=== PATIENT | male | born 1990 | race Caucasian/White ===

== ENCOUNTER 2022-02-19 15:29 | Emergency (ER) | payer OTHER ==
[~2022-02-19] VITALS: Ht 170.2 cm; Wt 77.1 kg
[2022-02-19] MEDS ORDERED: VALACYCLOVIR1000 MG PO (17:49)
[2022-02-19] MEDS ORDERED: DICLOFENAC POTA50 MG PO (17:49)
[2022-02-19] MEDS ORDERED: HORIZANT300 MG PO (17:49)
== END 2022-02-19 18:31 ==
LOC: ER 15:29
DX: K62.6 Ulcer of anus and rectum (principal); Z28.311 Partially vaccinated for COVID-19

== ENCOUNTER 2022-07-03 19:38 | Emergency (ER) | payer OTHER ==
[~2022-07-03] VITALS: Ht 170.2 cm; Wt 72.6 kg
[~2022-07-03 19:38] MED LIST: DICLOFENAC POTA50 MG PO; HORIZANT300 MG PO; VALACYCLOVIR1000 MG PO
== END 2022-07-03 22:06 | disposition home or self-care (01) ==
LOC: ER 19:38
DX: J03.80 Acute tonsillitis due to other specified organisms (principal)

== ENCOUNTER 2022-10-16 09:16 | Emergency (ER) | payer OTHER ==
[~2022-10-16] VITALS: Ht 170.2 cm; Wt 81.6 kg
== END 2022-10-16 12:30 | disposition home or self-care (01) ==
LOC: ER 09:16
DX: M62.830 Muscle spasm of back (principal)

== ENCOUNTER 2022-11-24 20:46 | Emergency (ER) | payer OTHER ==
[~2022-11-24] VITALS: Ht 170.2 cm; Wt 84.4 kg
== END 2022-11-24 22:44 | disposition home or self-care (01) ==
LOC: ER 20:46
DX: J03.90 Acute tonsillitis, unspecified (principal); R53.81 Other malaise; Z20.822 Contact with and (suspected) exposure to COVID-19

== ENCOUNTER 2023-01-03 09:16 | Emergency (ER) | payer OTHER ==
[~2023-01-03] VITALS: Ht 170.2 cm; Wt 86.2 kg
[2023-01-03] MEDS ORDERED: AMOX-CLAV 875-1 EACH PO (11:49)
== END 2023-01-03 12:23 | disposition home or self-care (01) ==
LOC: ER 09:16
DX: R53.81 Other malaise (principal); J06.9 Acute upper respiratory infection, unspecified; Z20.822 Contact with and (suspected) exposure to COVID-19